=== PATIENT | male | born 1935 | race Caucasian/White ===

== ENCOUNTER 2017-02-20 20:54 | Observation (INO) | payer BC, OTHER ==
[2017-02-20 21:03] VITALS: BMI 32.1
--- NOTE | 2017-02-20 21:21 | DR.GENAD ---
HPI - PCP Primary Care Physician: ELISABETH GALEANO - HPI Comment HPI Comment: PAIN DID NOT RESPOND TO TOMS. NO N/V OR SOB. NO FEVER. - Complaint/Symptoms Chief Complaint Doctors Comments: EPIGASTRIC PAIN AND UPPER BACK PAIN BETWEEN SHOULDER BLADE SINCE LAST NIGHT. Chief Complaint:: INDIGESTION AND UPPER BACK PAIN Self Treatment fo Chief Complaint: IBUPROFEN - Nurses notes reviewed Nurses Notes Review: Yes - Source History Provided: Patient - Mode of Arrival Mode of Arrival: Ambulatory - Timing Onset of Chief Complaint: 02/19/17 Came on: Suddenly - Duration Duration: Constant Duration: Days - Severity Severity: Moderate PMH - PMH Past Medical History: No Past Medical History Comment: TAKES ASA AND GABAPENTIN FOR LEG PAIN Past Surgical History: No Surgical History: Cholecystectomy - Family History History of Family Medical Conditions: No - Social History Does patient currently use any type of tobacco product: No Have you used tobacco products in the last 12 months: No Type of Tobacco Use: None Alcohol Use: None Do you use any recreational Drugs:: No Lives With: Spouse Lives Where: Home - infectious screening In the last 2 months have you had wt loss of >10#?: NO Have you had fever, night sweats or hemotysis?: No Have you traveled outside the country in the last 6 months?: No Isolation: Standard ROS - Review of Systems Constitutional: Weakness, Fatigue. negative: Chills, Fever Eyes: negative: Eye Pain, Discharge ENTM: No Symptoms Reported. negative: Ear Pain, Nose Discharge, Nose Congestion , Throat Pain Respiratoy: Non-Productive Cough, Short of Breath. negative: Productive Cough, Wheezing, Hemoptysis Cardiovascular: Chest Pain Gastrointestinal/Abdominal: negative: Abdominal Pain, Diarrhea, Nausea, Vomiting Genitourinary: No Symptoms Reported. negative: Dysuria, Frequency, Hematuria Neurological: Weakness. negative: Headache, Dizziness Musculoskeletal: Back Pain, Muscle Pain Integumentary: No Symptoms Reported Hematologic/Lymphatic: No Symptoms Reported Endocrine: No Symptoms Reported All Other Systems: Reviewed and Negative PE - Vital Signs Vitals: Temperature 98.0 F Pulse Rate [Apical] 76 Pulse Rate 76 Respiratory Rate 18 Blood Pressure [Left Arm] 202/84 Blood Pressure 156/85 O2 Sat by Pulse Oximetry 99 - General Limitations: No Limitations General Appearance: Alert - Head Head Exam: Normal Inspection - Eyes Eye exam: Normal Appearance - ENT ENT Exam: Normal External Ear Exam External Ear Exam: Normal External Inspection TM/Canal Exam: Bilateral Normal Nose Exam: Normal Nose Exam Mouth Exam: Normal Inspection Throat Exam: Normal Inspection - Neck Neck Exam: Trachea Midline - Chest Chest Inspection: Symmetric Chest Wall Rise - Respiratory Respiratory Exam: Normal Lung Sounds Bilat Respiratory Exam: Bilateral Clear to Auscultation - Cardiovascular Cardiovascular Exam: Regular Rate, Normal Rhythm, Normal Heart Sounds - Abdominal Exam Abdominal Exam: Normal Bowel Sounds, Soft. negative: Tenderness - Extremities Extremities Exam: Normal Inspection - Back Back Exam: Normal Inspection - Neurologic Neurological Exam: Alert, Oriented X3, CN II-XII Intact, Normal Gait, Reflexes Normal. negative: Motor Sensory Deficit - Psychiatric Psychiatric Exam: Normal Affect, Normal Mood - Skin Skin Exam: Normal Color MDM - Additional Information Additional Information Obtained From: Family - Differential Diagnosis Differential Diagnosis: CHEST PAIN, UPPER BACK PAIN Course - Treatment Treatment: SEE ORDERS. - Consultation Consultation Comments: DISCUSS PATIENT WITH DR. GALEANO. HE WILL ADMIT PATIENT. - Education/Counseling Education/Counseling: Patient, Family, Education Educated On: Diagnosis, Needs for Follow Up ROR - Labs Reviewed Laboratory Results Reviewed?: Yes Result Diagrams: 02/20/17 21:20 02/20/17 21:20 Laboratory: WBC 10.5 X10^3/uL (3.6-10.0) H 02/20/17 21:20 RBC 4.58 X10^6/uL (4.7-6.0) L 02/20/17 21:20 Hgb 14.6 g/dL (13.5-18.0) 02/20/17 21:20 Hct 42.4 % (42.0-54.0) 02/20/17 21:20 MCV 92.7 fL (80.0-100.0) 02/20/17 21:20 MCH 31.9 pg (27.0-34.0) 02/20/17 21:20 MCHC 34.4 g/dL (33.0-35.0) 02/20/17 21:20 RDW 14.0 % (11.6-16.5) 02/20/17 21:20 Plt Count 192 X10^3/uL (150.0-450.0) 02/20/17 21:20 MPV 8.2 fL (7.4-11.0) 02/20/17 21:20 Neut % 59.0 % (42.0-75.0) 02/20/17 21:20 Lymph % 26.2 % (21.0-51.0) 02/20/17 21:20 [place] % 11.4 % (0.0-13.0) 02/20/17 21:20 Eos % 2.6 % (0.9-2.9) 02/20/17 21:20 Baso % 0.8 % (0.2-1.0) 02/20/17 21:20 Neut # 6.2 x10^3/uL (2.2-4.8) H 02/20/17 21:20 Lymph # 2.7 X10^3/uL (1.3-2.9) 02/20/17 21:20 [place] # 1.2 x10^3/uL (0.3-0.8) H 02/20/17 21:20 Eos # 0.3 x10^3/uL (0.0-0.2) H 02/20/17 21:20 Baso # 0.1 X10^3/uL (0.0-0.1) 02/20/17 21:20 Absolute Nucleated RBC 0.0 /100WBC 02/20/17 21:20 Sodium 142 mmol/L (136-145) 02/20/17 21:20 Corrected Sodium TNP 02/20/17 21:20 Potassium 4.0 mmol/L (3.5-5.1) 02/20/17 21:20 Chloride 104 mmol/L (98-107) 02/20/17 21:20 Carbon Dioxide 30.8 mmol/L (21-32) 02/20/17 21:20 BUN 16 mg/dL (7-18) 02/20/17 21:20 Creatinine 1.02 mg/dL (0.70-1.30) 02/20/17 21:20 Est GFR (MDRD) Af Amer > 60 (>60) 02/20/17 21:20 Est GFR (MDRD) Non-Af > 60 (>60) 02/20/17 21:20 Glucose 85 mg/dL (65-99) 02/20/17 21:20 Calcium 10.1 mg/dL (8.5-10.1) 02/20/17 21:20 Corrected Calcium TNP 02/20/17 21:20 Total Bilirubin 0.60 mg/dL (0.2-1.0) 02/20/17 21:20 AST 15 Units/L (15-37) 02/20/17 21:20 ALT 27 Units/L (12-78) 02/20/17 21:20 Alkaline Phosphatase 74 Units/L (46-116) 02/20/17 21:20 Creatine Kinase 101 Units/L (39-308) 02/20/17 21:20 CK-MB (CK-2) < 1.0 ng/mL (0-4.0) 02/20/17 21:20 CK/CKMB % Calc 1.0 % (<4) 02/20/17 21:20 Troponin I < 0.02 ng/mL (0-1.5) 02/20/17 21:20 Total Protein 7.3 g/dL (6.4-8.2) 02/20/17 21:20 Albumin 3.7 g/dL (3.4-5.0) 02/20/17 21:20 Globulin 3.6 g/dL (2.5-4.5) 02/20/17 21:20 Albumin/Globulin Ratio 1.0 Ratio (1.1-2.1) L 02/20/17 21:20 - XRAY XRAY Interpreted by: Radiologist XRAY Findings: REPORT DISCUSS WITH PATIENT AND HIS FAMILY. - EKG Rhythm: NSR (EKG NOTED.) - Diagnosis Discharge Problem: Chest pain Qualifiers: Chest pain type: precordial pain Qualified Code(s): R07.2 - Precordial pain - Discharge Plan Disposition: ADMITTED INPATIENT Condition: Stable - Follow ups/Referrals - Instructions
[2017-02-20] MEDS ORDERED: NITROSTAT SL PRN (21:27)
[2017-02-20] MEDS ORDERED: ASPIRIN 81 MG CHEWTAB PO ONE (21:29)
[2017-02-20] MEDS ORDERED: PEPCID 20 MG IV PREMIX* 20 MG/50 ML BAG IV ONE ×2 (21:29→21:44)
[2017-02-20 21:31] LABS: BASOPHILS # (AUTO) 0.1 X10^3/uL (0.0-0.1); BASOPHILS % (AUTO) 0.8 % (0.2-1.0); EOSINOPHILS # (AUTO) 0.3 x10^3/uL (0.0-0.2); EOSINOPHILS % (AUTO) 2.6 % (0.9-2.9); HEMATOCRIT 42.4 % (42.0-54.0); HEMOGLOBIN 14.6 g/dL (13.5-18.0); LYMPHOCYTES # (AUTO) 2.7 X10^3/uL (1.3-2.9); LYMPHOCYTES % (AUTO) 26.2 % (21.0-51.0); MEAN CORPUSCULAR HEMOGLOBIN 31.9 pg (27.0-34.0); MEAN CORPUSCULAR HGB CONC 34.4 g/dL (33.0-35.0); MEAN CORPUSCULAR VOLUME 92.7 fL (80.0-100.0); MEAN PLATELET VOLUME 8.2 fL (7.4-11.0); MONOCYTES # (AUTO) 1.2 x10^3/uL (0.3-0.8); MONOCYTES % (AUTO) 11.4 % (0.0-13.0); NEUTROPHILS # (AUTO) 6.2 x10^3/uL (2.2-4.8); PLATELET COUNT 192 X10^3/uL (150.0-450.0); RED BLOOD COUNT 4.58 X10^6/uL (4.7-6.0); WHITE BLOOD COUNT 10.5 X10^3/uL (3.6-10.0)
[2017-02-20] MEDS ORDERED: ASPIRIN 81 MG CHEWTAB ONE (21:44)
[2017-02-20] MEDS ORDERED: NS 100 ML IV 100 ML IV ONE (21:46)
[2017-02-20 21:48] LABS: BLOOD UREA NITROGEN 16 mg/dL (7-18); CALCIUM 10.1 mg/dL (8.5-10.1); CARBON DIOXIDE 30.8 mmol/L (21-32); CHLORIDE 104 mmol/L (98-107); CREATININE 1.02 mg/dL (0.70-1.30); SODIUM 142 mmol/L (136-145); TROPONIN I < 0.02 ng/mL (0-1.5); eGFR BLACK RACES > 60 (>60); eGFR NON BLACK RACES > 60 (>60)
[2017-02-20 22:02] LABS: ALANINE AMINOTRANSFERASE 27 Units/L (12-78); ALBUMIN 3.7 g/dL (3.4-5.0); ALKALINE PHOSPHATASE 74 Units/L (46-116); ASPARTATE AMINO TRANSFERASE 15 Units/L (15-37); CREATINE KINASE 101 Units/L (39-308); CREATINE KINASE MB < 1.0 ng/mL (0-4.0); TOTAL PROTEIN 7.3 g/dL (6.4-8.2)
--- NOTE | 2017-02-20 22:29 | RAD ---
Chest, one view Indication: Indigestion, upper back pain Comparison: None Findings: The heart size is normal. The lungs are essentially clear without dense infiltrates or larg e effusion. Healed right clavicle fracture noted. Impression: No acute chest process. Reported By:
[2017-02-20] MEDS ORDERED: ZOFRAN INJ 4 MG VIAL IVP PRN (23:05)
[2017-02-20] MEDS ORDERED: MORPHINE SULFATE INJ 2 MG INJ IVP PRN (23:05)
[2017-02-20] MEDS ORDERED: NS 1000 ML 1,000 ML IV SCH (23:45)
[2017-02-21 00:52] LABS: BILIRUBIN,URINE NEGATIVE (NEGATIVE); BLOOD/HEMOGLOBIN,URINE 1+ (NEGATIVE); GLUCOSE, URINE NEGATIVE (NEGATIVE); KETONES,URINE 2+ (NEGATIVE); LEUKOCYTE ESTERASE ,URINE NEGATIVE (NEGATIVE); NITRITES,URINE NEGATIVE (NEGATIVE); PROTEIN,URINE NEGATIVE (NEGATIVE); UROBILINOGEN,URINE NORMAL (NORMAL)
[2017-02-21 00:59] LABS: APPEARANCE,URINE CLEAR (CLEAR); BACTERIA,URINE NEGATIVE /HPF (NEGATIVE); COLOR,URINE YELLOW (YELLOW); RBC,URINE 0-1 /HPF (NEGATIVE); SQUAMOUS EPITHELIAL CELL,UR RARE /HPF (NEGATIVE)
[2017-02-21] MEDS ORDERED: FLUVIRIN IM ONE ×2 (01:29→05:47)
[2017-02-21 05:41] LABS: BASOPHILS % (AUTO) 0.5 % (0.2-1.0); EOSINOPHILS # (AUTO) 0.3 x10^3/uL (0.0-0.2); EOSINOPHILS % (AUTO) 3.6 % (0.9-2.9); HEMATOCRIT 40.4 % (42.0-54.0); HEMOGLOBIN 13.7 g/dL (13.5-18.0); LYMPHOCYTES # (AUTO) 2.3 X10^3/uL (1.3-2.9); LYMPHOCYTES % (AUTO) 28.2 % (21.0-51.0); MEAN CORPUSCULAR HEMOGLOBIN 31.5 pg (27.0-34.0); MEAN CORPUSCULAR HGB CONC 33.8 g/dL (33.0-35.0); MEAN CORPUSCULAR VOLUME 93.1 fL (80.0-100.0); MEAN PLATELET VOLUME 8.7 fL (7.4-11.0); MONOCYTES # (AUTO) 0.9 x10^3/uL (0.3-0.8); MONOCYTES % (AUTO) 10.4 % (0.0-13.0); NEUTROPHILS # (AUTO) 4.7 x10^3/uL (2.2-4.8); NEUTROPHILS % (AUTO) 57.3 % (42.0-75.0); PLATELET COUNT 165 X10^3/uL (150.0-450.0); RED BLOOD COUNT 4.34 X10^6/uL (4.7-6.0); RED CELL DISTRIBUTION WIDTH 13.8 % (11.6-16.5); WHITE BLOOD COUNT 8.2 X10^3/uL (3.6-10.0)
[2017-02-21 05:45] LABS: ALANINE AMINOTRANSFERASE 23 Units/L (12-78); ALBUMIN 3.2 g/dL (3.4-5.0); ALKALINE PHOSPHATASE 66 Units/L (46-116); ASPARTATE AMINO TRANSFERASE 14 Units/L (15-37); BLOOD UREA NITROGEN 13 mg/dL (7-18); CALCIUM 9.3 mg/dL (8.5-10.1); CARBON DIOXIDE 27.7 mmol/L (21-32); CHLORIDE 105 mmol/L (98-107); CHOL/HDL RATIO 2.2 (0.0-5.0); CHOLESTEROL 148 mg/dL (0-200); COR CA(FOR HYPOALB) 9.9 mg/dL (8.5-10.1); CREATININE 0.94 mg/dL (0.70-1.30); HDL CHOLESTEROL 66 mg/dL (40-60); MAGNESIUM 1.8 mg/dL (1.7-2.9); SODIUM 140 mmol/L (136-145); TOTAL PROTEIN 6.7 g/dL (6.4-8.2); TRIGLYCERIDES 27 mg/dL (0-150); eGFR BLACK RACES > 60 (>60); eGFR NON BLACK RACES > 60 (>60)
[2017-02-21 06:04] LABS: CKMB % 1.1 % (<4); CREATINE KINASE 88 Units/L (39-308); CREATINE KINASE MB < 1.0 ng/mL (0-4.0); TROPONIN I < 0.02 ng/mL (0-1.5)
[2017-02-21] MEDS ORDERED: ASPIRIN PO SCH (09:00)
[2017-02-21] MEDS ORDERED: PEPCID 20 MG IV PREMIX* 20 MG/50 ML BAG IV SCH (09:00)
[2017-02-21 11:53] LABS: CKMB % 1.1 % (<4); CREATINE KINASE 94 Units/L (39-308); CREATINE KINASE MB < 1.0 ng/mL (0-4.0); TROPONIN I < 0.02 ng/mL (0-1.5)
[2017-02-21] MEDS ORDERED: TYLENOL 325 MG TAB PO PRN (14:52)
[2017-02-21 15:18] VITALS: BP 135/78
--- NOTE | 2017-02-27 22:39 | DR.CARTERS ---
Short Stay Summary - Short Stay Summary for: Short Stay Summary for Date of:: 02/21/18 - Admission Date Date of Admission: 02/20/18 - Discharge Date Discharge Date: 02/21/17 - Admission Diagnoses (1) Chest pain Status: Acute - Hospital Course Hospital Course: Mr. Christy is an 82 year old patient of ours who presented to the emergency room with reports of epigastric abdominal pain, indigestion, and pain to his upper back. Patient reported that symptoms started suddenly last night. Patient reported that he had taken Tums at home without improvement of indigestion or pain. Associated symptoms were non-productive cough, chest pain, and weakness. On examination, lungs were noted clear to auscultation. Abdomen was soft, round , and noted with tenderness to epigastric region upon palpation. Normal bowel sound noted in all quadrants. On arrival to the ER, vitals were 98, 76, 20, 100 % RA, 156/85. Labs, chest xray, and EKG were obtained. Abnormal lab values include the following: WBC 10.5, RBC 4.58, A/G Ratio 1.0. Cardiac enzymes were Within normal limits. EKG reported: Sinus Rhythm. Rate=76. Chest xray reported: no acute chest process. We admitted patient for further treatment and evaluation of pain and to R/O acute myocardial infarction. He was started on Nitrostat 0.4mg SL Q5min PRN, Aspirin 324mg daily, Pepcid 20mg IV , Morphine 2mg IV Q4hr PRN, Zofran 4mg IV Q6hr PRN, NS @75ml/hr. We planned to obtain serial cardiac enzymes and EKGs, follow up with AM labs, and continue to monitor patient. Day 2 of stay: is alert and oriented, sitting up in bed on morning rounds. He denies pain or shortness of breath upon rounds. He reports feeling much better than on admission. On examination, lungs are clear to auscultation. Abdomen is round, soft, and non-tender with normal bowel sounds noted in all quadrants. His vital signs this morning are 97.9-68-18-98%-147/70. Labs and EKGs were obtained. Abnormal lab values include the following: RBC.34, HCT 40.4 , AST 14, ALBUMIN 3.2, A/G RATIO 0.9. Cardiac enzymes were WNL. Most recent EKG reported sinus rhythm with HR 75, multiple PVCs, and probable left atrial enlargement. An ECHO was obtained today and reported an ejection fraction of 68% . Slightly enlarged right ventricle. Patient states that he feels much better and is ready to return home. We planned for discharge. Instructions for follow up and medications were discussed with patient. Patient verbalized understanding of all instructions. Patient is discharged home with family in stable condition with new prescriptions for crestor 10mg po hs. He is instructed to follow up at our office on 03/01/17. - Discharge Medications Discharge Medications: Gabapentin [NEURONTIN TAB 600 MG *] 1 tab PO HS 02/20/17 [History] Rosuvastatin Calcium [Crestor Tab 10 mg] 10 mg PO HS #30 tab 02/21/17 [Rx] - Discharge Plan Disposition: 01 HOME, SELF-CARE Condition: Stable Prescriptions: Rosuvastatin Calcium [Crestor Tab 10 mg] 10 mg PO HS #30 tab - Follow up/Referrals Follow up/Referrals: Paul Jacques [Primary Care Provider] - 03/01/17 9:10 am - Instructions Instructions: Fall Prevention in the Home, [id number], Back Exercises, Back Pain, Adult, [id number], Chest Pain Observation Additional Instructions: ACTIVITY TOLERATED. DIET TOLERATED. Forms: Patient Portal
== END 2017-02-21 15:55 | disposition home or self-care (01) ==
LOC: ER 21:07 → MED/SURG 22:59
PROVIDERS: ADMIT Internal Medicine; ATTEND Internal Medicine
PROC: 3E0234Z Introduction of Serum, Toxoid and Vaccine into Muscle, Percutaneous Approach (ICD-10-PCS; principal; 2017-02-21)
DX: R07.89 Other chest pain (principal); R07.2 Precordial pain; R10.13 Epigastric pain; M54.89 Other dorsalgia; R06.02 Shortness of breath; Z79.01 Long term (current) use of anticoagulants; Z23 Encounter for immunization
CPT/HCPCS: 36415; 71010; 80053; 80061; 81001; 82550; 82553; 83735; 84484; 85025; 85610; 85730; 90686; 93005; 93306; 94760; 96365; 96374; 99284; A4222; S0028; G0378; J2270

== ENCOUNTER 2022-12-20 13:11 | Observation (INO) ==
[2022-12-20 15:25] VITALS: BMI 29.5
[2022-12-20 15:33] LABS: BASOPHILS % (AUTO) 0.7 % (0.2-1.0); EOSINOPHILS # (AUTO) 0.1 x10^3/uL (0.0-0.2); EOSINOPHILS % (AUTO) 1.2 % (0.9-2.9); HEMATOCRIT 37.9 % (42.0-54.0); HEMOGLOBIN 12.7 g/dL (13.5-18.0); LYMPHOCYTES % (AUTO) 29.2 % (21.0-51.0); MEAN CORPUSCULAR HEMOGLOBIN 31.3 pg (27.0-34.0); MEAN CORPUSCULAR HGB CONC 33.6 g/dL (33.0-35.0); MEAN CORPUSCULAR VOLUME 93.2 fL (80.0-100.0); MEAN PLATELET VOLUME 8.4 fL (7.4-11.0); MONOCYTES # (AUTO) 0.6 x10^3/uL (0.3-0.8); MONOCYTES % (AUTO) 9.1 % (0.0-13.0); NEUTROPHILS % (AUTO) 59.8 % (42.0-75.0); PLATELET COUNT 190 X10^3/uL (150.0-450.0); RED BLOOD COUNT 4.07 X10^6/uL (4.7-6.0); RED CELL DISTRIBUTION WIDTH 13.8 % (11.6-16.5); WHITE BLOOD COUNT 6.8 X10^3/uL (3.6-10.0)
--- NOTE | 2022-12-20 15:46 | EKG ---
Test Reason : MALIGNANT HTN, DIZZINESS, SHUKLA Blood Pressure : */* mmHG Vent. Rate : 57 BPM Atrial Rate : 57 BPM P-R Int : 174 ms QRS Dur : 88 ms QT Int : 416 ms P-R-T Axes : 59 -22 -9 degrees QTc Int : 404 ms Sinus bradycardia Nonspecific ST abnormality Abnormal ECG No previous ECGs available Confirmed by Shabbir Alberts (4) on 12/25/2022 8:07:03 AM Referred By: Confirmed By: Shabbir Alberts
[2022-12-20 16:00] LABS: ALANINE AMINOTRANSFERASE 14 Units/L (12-78); ALBUMIN 3.2 g/dL (3.4-5.0); ALKALINE PHOSPHATASE 63 Units/L (46-116); ASPARTATE AMINO TRANSFERASE 12 Units/L (15-37); BLOOD UREA NITROGEN 19 mg/dL (7-18); CALCIUM 8.2 mg/dL (8.5-10.1); CARBON DIOXIDE 29.8 mmol/L (21-32); CHLORIDE 108 mmol/L (98-107); COR CA(FOR HYPOALB) 8.8 mg/dL (8.5-10.1); CREATININE 0.96 mg/dL (0.70-1.30); GLUCOSE 92 mg/dL (65-99); POTASSIUM 3.6 mmol/L (3.5-5.1); SODIUM 144 mmol/L (136-145); TOTAL PROTEIN 5.9 g/dL (6.4-8.2); eGFR NON BLACK RACES > 60 (>60)
--- NOTE | 2022-12-20 16:53 | CT ---
HISTORYMALIGNANT HTN, DIZZINESS, HEADACHESTUDYCT brain without IV contrastCOMPARISONNoneTECHNIQUEMultiple axial images of the brain were obtained without IV contrast. Dose reduction techniques including Automated Exposure Control (AEC) and adjustment of mA and kV were utilized.FINDINGSThere is mild mucosal thickening in the right sphenoid sinus and ethmoid sinuses. No calvarial fracture is seen. No acute intracranial hemorrhage or mass effect is seen. There is moderate diffuse volume loss in the brain with compensatory enlargement of the ventricular system. No evidence of acute CVA. Likely mild chronic small vessel ischemic changes are seen in the basal ganglia and white matter.IMPRESSIONLikely mild chronic small vessel ischemic changes are seen without evidence of acute intracranial abnormality.Electronically signed by: Joel Dupree (Dec 20, 2022 16:51:50)
[2022-12-20] MEDS ORDERED: K-DUR TAB 20 MEQ PO SCH (17:00)
[2022-12-20] MEDS ORDERED: CONSULT PHARMACY - POTASSIUM & MAGNESIUM XX SCH ×2 (17:00→18:00)
[2022-12-20] MEDS: LOVENOX INJ 40 MG SYR SC SCH (17:48)
--- NOTE | 2022-12-20 18:16 | EKG ---
Test Reason : MALIGNANT HTN, DIZZINESS, SHUKLA Blood Pressure : */* mmHG Vent. Rate : 58 BPM Atrial Rate : 58 BPM P-R Int : 172 ms QRS Dur : 76 ms QT Int : 422 ms P-R-T Axes : 68 -17 6 degrees QTc Int : 414 ms Sinus bradycardia Nonspecific ST abnormality Abnormal ECG When compared with ECG of 20-DEC-2022 15:28, (Unconfirmed) No significant change was found Confirmed by Shabbir Alberts (4) on 12/25/2022 8:06:51 AM Referred By: Confirmed By: Shabbir Alberts
[2022-12-20] MEDS ORDERED: TYLENOL 325 MG TAB PO PRN (19:32)
[2022-12-20] MEDS ORDERED: KLONOPIN TAB 0.5 MG PO SCH (21:00)
--- NOTE | 2022-12-20 23:54 | EKG ---
Test Reason : MALIGNANT HTN, DIZZINESS, SHUKLA Blood Pressure : */* mmHG Vent. Rate : 57 BPM Atrial Rate : 57 BPM P-R Int : 160 ms QRS Dur : 84 ms QT Int : 422 ms P-R-T Axes : 52 -20 10 degrees QTc Int : 410 ms Sinus bradycardia Otherwise normal ECG When compared with ECG of 20-DEC-2022 18:05, (Unconfirmed) No significant change was found Confirmed by Shabbir Alberts (4) on 12/25/2022 8:06:37 AM Referred By: Confirmed By: Shabbir Alberts
[2022-12-21 05:10] LABS: BASOPHILS % (AUTO) 0.6 % (0.2-1.0); EOSINOPHILS # (AUTO) 0.1 x10^3/uL (0.0-0.2); EOSINOPHILS % (AUTO) 2.1 % (0.9-2.9); HEMATOCRIT 36.2 % (42.0-54.0); HEMOGLOBIN 12.5 g/dL (13.5-18.0); LYMPHOCYTES % (AUTO) 36.3 % (21.0-51.0); MEAN CORPUSCULAR HEMOGLOBIN 31.9 pg (27.0-34.0); MEAN CORPUSCULAR HGB CONC 34.4 g/dL (33.0-35.0); MEAN CORPUSCULAR VOLUME 92.7 fL (80.0-100.0); MEAN PLATELET VOLUME 8.9 fL (7.4-11.0); MONOCYTES # (AUTO) 0.5 x10^3/uL (0.3-0.8); MONOCYTES % (AUTO) 9.9 % (0.0-13.0); NEUTROPHILS # (AUTO) 2.8 x10^3/uL (2.2-4.8); NEUTROPHILS % (AUTO) 51.1 % (42.0-75.0); PLATELET COUNT 181 X10^3/uL (150.0-450.0); RED BLOOD COUNT 3.91 X10^6/uL (4.7-6.0); RED CELL DISTRIBUTION WIDTH 14.1 % (11.6-16.5); WHITE BLOOD COUNT 5.5 X10^3/uL (3.6-10.0)
[2022-12-21 05:19] LABS: ALANINE AMINOTRANSFERASE 13 Units/L (12-78); ALBUMIN 3.1 g/dL (3.4-5.0); ALKALINE PHOSPHATASE 58 Units/L (46-116); ASPARTATE AMINO TRANSFERASE 12 Units/L (15-37); BLOOD UREA NITROGEN 25 mg/dL (7-18); CALCIUM 8.3 mg/dL (8.5-10.1); CHLORIDE 106 mmol/L (98-107); CREATININE 0.89 mg/dL (0.70-1.30); GLUCOSE 92 mg/dL (65-99); POTASSIUM 4.1 mmol/L (3.5-5.1); SODIUM 141 mmol/L (136-145); TOTAL PROTEIN 5.8 g/dL (6.4-8.2); eGFR NON BLACK RACES > 60 (>60)
[2022-12-21] MEDS ORDERED: SYNTHROID 50 mcg TAB PO SCH (06:30)
[2022-12-21] MEDS ORDERED: ZESTRIL TAB 10 MG PO SCH (09:00)
[2022-12-21] MEDS: LOVENOX INJ 40 MG SYR SC SCH (09:30)
[2022-12-21 10:13] VITALS: BP 136/67; PULSE 60; RESP 14; TEMP 97.6; O2SAT 96
--- NOTE | 2022-12-21 10:18 | VAS ---
HISTORY: Concern for carotid artery stenosis.EXAM: BILATERAL DOPPLER CAROTID ULTRASOUND EXAMTechnique: Multiple valentin scale and color flow Doppler images of the right and left carotid arterial system were obtained.The vertebral arterial system was evaluated as well.Findings: Nonocclusive color flow Doppler is seen throughout the right and left carotid arterial system. No hemodynamically significant carotid arterial stenosis is seen based on velocity criteria. There is mild bilateral carotid atherosclerosis and soft atherosclerotic plaque formation of the bilateral carotid bulbs and ICAs with associated intimal thickening but [without] evidence for high-grade stenosis (>70%) or occlusion of the carotid arteries. The right and left vertebral artery demonstrate antegrade flow.IMPRESSION: Mild bilateral carotid atherosclerosis and soft atherosclerotic plaque formation of the bilateral carotid bulbs and [in both] ICAs with [id number] associated carotid intimal thickening but without evidence for high-grade stenosis or occlusion of the carotid arteries, based on Doppler velocity criteria.Appropriate, antegrade, vertebral arterial flow.Peak right ICA velocity: 115 centimeter/seconds.Peak right CCA velocity: 91 centimeter/seconds.Peak left ICA velocity: 109 centimeter/seconds.Peak left CCA velocity: 115 centimeter/seconds.Right ICA to CCA ratio: 1.3.Left ICA to CCA ratio: 1.95.Electronically signed by: FABIAN CAMPBELL III (Dec 21, 2022 10:13:03)
== END 2022-12-21 10:45 | disposition home or self-care (01) ==
LOC: ICU
PROVIDERS: ADMIT Internal Medicine; ATTEND Internal Medicine
DX: I16.0 Hypertensive urgency; R51.9 Headache, unspecified; R94.31 Abnormal electrocardiogram [ECG] [EKG]; R42 Dizziness and giddiness